=== PATIENT | male | born 1985 | race African-American/Black ===

== ENCOUNTER 2018-12-10 11:25 | Emergency (ER) | payer BC ==
[~2018-12-10] VITALS: Ht 177.8 cm; Wt 88.5 kg
[2018-12-10 11:33] VITALS: BP 129/86
--- NOTE | 2018-12-10 11:40 | NUR ---
ED Nurse Note: Patient walked into ED from home c/o sorethroat for 4 days. patient is alert awake x4 ambulatory steady gait, breathing unlabored and even.
--- NOTE | 2018-12-10 12:37 | Emergency Room Report ---
History of Present Illness General Chief Complaint: Sore Throat Source: Patient Present Illness HPI 33-year-old male with history of HIV positive currently compliant with taking medication and low viral load, here complaining of 4 days of sore throat rating it 10 out of 10, and cough with green phlegm. Denies wheezing or shortness of breath. Denies congestion, chest pain, palpitation, abdominal pain , nausea vomiting. Reports he has not taken any medication. Denies all other associated symptoms. Denies hemoptysis Allergies: Coded Allergies: No Known Allergies (Unverified , 12/10/18) Patient History Past Medical History: see triage record Past Surgical History: unable to obtain Pertinent Family History: none Immunizations: UTD Reviewed Nursing Documentation: PMH: Agreed; PSxH: Agreed Nursing Documentation-PMH Past Medical History: No History, Except For Hx Cardiac Problems: No - HIV + Review of Systems All Other Systems: negative except mentioned in HPI Physical Exam Vital Signs Date Time Temp Pulse Resp B/P (MAP) Pulse Ox O2 Delivery O2 Flow Rate FiO2 12/10/18 11:33 98.2 84 16 129/86 98 Room Air Sp02 EP Interpretation: reviewed, normal General Appearance: no apparent distress, alert, GCS 15, non-toxic Head: normocephalic, atraumatic Eyes: bilateral eye normal inspection, bilateral eye PERRL ENT: hearing grossly normal, no angioedema, uvula midline, pharyngeal erythema Neck: full range of motion, supple, no carotid bruits, supple/symm/no masses Respiratory: chest non-tender, lungs clear, normal breath sounds, no rhonchi, no wheezing, speaking full sentences Cardiovascular #1: regular rate, rhythm, no edema, no murmur Gastrointestinal: normal bowel sounds, non tender, soft, non-distended, no guarding, no rebound Rectal: deferred Genitourinary: normal inspection, no CVA tenderness Musculoskeletal: back normal, gait/station normal, normal range of motion, non- tender, no calf tenderness Neurologic: alert, oriented x3, responsive, motor strength/tone normal, sensory intact, speech normal Psychiatric: judgement/insight normal, memory normal, mood/affect normal, no suicidal/homicidal ideation Skin: no rash Lymphatic: no adenopathy Medical Decision Making PA Attestation All diagnoses and treatment plans were reviewed and discussed with my supervising physician Dr. Silva Diagnostic Impression: Primary Impression: URI (upper respiratory infection) ER Course 33-year-old male with history of HIV positive currently compliant with taking medication and low viral load, here complaining of 4 days of sore throat rating it 10 out of 10, and cough with green phlegm. Denies wheezing or shortness of breath. Denies congestion, chest pain, palpitation, abdominal pain , nausea vomiting. Reports he has not taken any medication. Denies all other associated symptoms. Denies hemoptysis Ddx considered but are not limited to: strep pharyngitis, URI, tonsillitis, peritonsillar abscess, influneza Vital signs: are WNL, pt. is afebrile H&PE are most consistent with: URI presumed bacterial due to HIV status ORDERS: Bactrim DS, chest x-ray, Phenergan ED INTERVENTIONS: None required at this time. DISCHARGE: At this time pt. is stable for d/c to home. Will provide printed patient care instructions, and any necessary prescriptions. Care plan and follow up instructions have been discussed with the patient prior to discharge. Take medication as directed follow-up with your primary care provider if worsening symptoms return to the emergency room Chest X-Ray Diagnostic Results Chest X-Ray Diagnostic Results : Chest X-Ray Ordered: Yes # of Views/Limited/Complete: 1 View Indication: Other - cough EP Interpretation: Yes SHAHANA Xray: Interpretation reviewed, by supervising MD, and agrees with findings. Interpretation: no consolidation, no effusion, no pneumothorax Impression: No acute disease Electronically Signed by: Romain Lockhart PA-C Last Vital Signs Date Time Temp Pulse Resp B/P (MAP) Pulse Ox O2 Delivery O2 Flow Rate FiO2 12/10/18 11:33 98.2 84 16 129/86 (100) 98 Room Air Disposition: HOME, SELF-CARE Condition: Stable Scripts Promethazine Hcl (PROMETHAZINE HCL*) 6.25 Mg/5 Ml Syrup 5 ML ORAL Q6H, #120 ML 0 Refills Prov: Romain Inman 12/10/18 Trimethoprim/Sulfamethoxazole 160/800* (BACTRIM DS TABLET*) 1 Each Tablet 1 TAB ORAL TWICE A DAY for 10 Days, #20 TAB Prov: Romain Inman 12/10/18 Patient Instructions: Upper Respiratory Infection, Adult, [id number] Additional Instructions: Take medication as directed follow-up with your primary care provider if worsening symptoms return to the emergency room Romain Inman Dec 10, 2018 12:37
[2018-12-10] MEDS ORDERED: PROMETHAZI6.25 MG/1 ORAL (12:38)
[2018-12-10] MEDS ORDERED: BACTRIM DS TAB1 EAC1 ORAL (12:38)
[2018-12-10 12:52] VITALS: BP 129/86
--- NOTE | 2018-12-10 12:52 | NUR ---
ER DISCHARGE NOTE: Patient is cleared to be discharged per JOURDAN IRENE, pt is aox4, on room air, with stable vital signs. pt was given dc and prescription instructions, pt was able to verbalize understanding, pt id band removed without complications. pt is able to ambulate with steady gait. pt took all belongings.
--- NOTE | 2018-12-11 12:32 | Diagnostic Imaging Report ---
Indication: Cough Technique: One view of the chest Comparison: none Findings: Lungs and pleural spaces are clear. The heart size is normal. Patient is rotated to the right. Impression: No acute process
== END 2018-12-10 16:04 | disposition home or self-care (01) ==
LOC: EMR 15:30
DX: J06.9 Acute upper respiratory infection, unspecified (principal); B20 Human immunodeficiency virus [HIV] disease
CPT/HCPCS: 71045; 99283